=== PATIENT | male | born 1975 | race Asian ===

== ENCOUNTER → 2023-12-25 14:57 | Outpatient (REF) | payer BC, SELFPAY | LOC: RAD 14:57 | PROVIDERS: ATTENDING PHYSICIAN Physician Assistant Medical; FAMILY PHYSICIAN Internal Medicine | DX: N50.819 Testicular pain, unspecified (principal) | CPT/HCPCS: 76870; 93976 ==

== ENCOUNTER 2024-11-11 19:30 | Emergency (ER) | payer BC, SELFPAY ==
[2024-11-11 19:34] VITALS: BP 150/93
[2024-11-11 19:52] LABS: % Basophils 0.7 % (0-2); % Eosinophils 0.8 % (0-6); % Immature Granulocytes 0.3 % (0-0.5); % Lymphocytes 18.9 % (20.5-51.1); % Monocytes 6.3 % (1.7-9.3); Absolute Basophils 0.1 10^3/uL (0-0.2); Absolute Eosinophils 0.1 10^3/uL (0-0.7); Absolute Lymphocytes 1.9 10^3/uL (1.2-3.4); Absolute Monocytes 0.6 10^3/uL (0.1-0.6); Absolute Neutrophils 7.3 10^3/uL (1.4-6.5); Hematocrit 41.9 % (39.0-52.0); Hemoglobin 14.4 g/dL (13.0-18.0); Mean Corp Hgb Conc. 34.4 g/dL (33.0-37.0); Mean Corpuscular Hgb 27.9 pg (27.0-31.0); Mean Corpuscular Volume 81.2 fL (80.0-94.0); Mean Platelet Volume 10.7 fL (7.4-10.4); Nucleated Red Blood Cells % 0 % (-); Platelet Count 249 10^3/uL (130-400); Red Blood Cell Count 5.16 10^6/uL (4.70-6.10); Red Cell Dist. Width 13.2 % (11.5-14.5); White Blood Cell Count 9.9 10^3/uL (4.8-10.8)
[2024-11-11 20:10] LABS: ALT (SGPT) 22 U/L (0-50); AST (SGOT) 27 U/L (17-59); Albumin 4.4 g/dl (3.5-5.0); Alkaline Phosphatase 96 U/L (38-126); Blood Urea Nitrogen 10 mg/dl (9-20); Calcium 9.5 mg/dl (8.4-10.2); Carbon Dioxide 27 mmol/L (22-30); Chloride 105 mmol/L (98-107); Glucose 261 mg/dl (70-99); Lipase 215 U/L (23-300); Potassium 3.7 mmol/L (3.5-5.1); Sodium 140 mmol/L (135-145); Total Bilirubin 0.6 mg/dl (0.2-1.3); Total Protein 7.4 g/dl (6.3-8.2); eGFR > 60.00
[2024-11-11 20:16] LABS: Troponin I < 0.012 ng/ml
[2024-11-11 20:42] VITALS: BP 129/85
[2024-11-11 21:00] VITALS: BP 123/81
--- NOTE | 2024-11-11 21:12 | ED.GENMED ---
History of Present Illness
General
Chief Complaint: Abdominal Symptoms
Source: patient
Exam Limitations: none
Time Seen by Provider: 11/11/24 21:01
Nursing documentation reviewed up to this point in time: agreed with
History of Present Illness
History of Present Illness:
Patient to ED with complaint of belching, burning in chest. States symptoms started over the past week and occur shortly after eating. He states he feels better after belching but occassionaly continues to feel burning in his chest. Lying flat will
escalate symptoms. He denies n/v/diaphoresis. No SOB. No dizziness. States he took Omeprazole this week without improvement. Brought to ED by family for eval. He is currently symptom free.
Past History
Past History
ED Past Medical History: GERD and Hypercholesterolemia
Social History
Tobacco: Non-smoker
Alcohol: Occasional
Drug: None
Review of Systems
Review of Systems
Allergies reviewed?: Yes
All Other Systems: ROS reviewed and negative except as documented in HPI and ROS
Constitutional: Reports no symptoms
Respiratory: Reports no symptoms
Cardiac: Reports chest pain (burning in chest after eating.)
ABD/GI: Reports other (belching, burning in chest)
: Reports no symptoms
Musculoskeletal: Reports no symptoms
Skin: Reports no symptoms
Neurological: Reports no symptoms
Psychiatric: Reports no symptoms
Phy Exam
General Physical Exam
General Presentation: well appearing and no apparent distress
General age: appears stated age
General Skin: warm and dry
General Habitus: normal
Cardiovascular Exam
Cardiovascular Exam: regular rate/rhythm and no edema
Pulmonary Exam
Pulmonary Exam: lungs clear and no respiratory distress
Gastrointestinal Exam
Gastrointestinal Exam: normal bowel sounds, non tender, soft and non distended
Musculoskeletal Exam
Musculoskeletal Exam: full ROM
Skin Exam
Skin Exam: normal color, warm/dry and no rash
Psychiatric Exam
Psychiatric Exam: normal mood/affect
Course
Orders/Labs/Results
Orders:
Orders
11/11/24 19:37
ECG [Electrocardiogram (*1)] Urgent
Reason for Study: Abdominal Pain
11/11/24 19:38
EKG- Treatment ONCE
11/11/24 19:44
Complete Blood Count/With Diff Urgent
Comprehensive Metabolic Panel Urgent
Lipase Urgent
Troponin I Urgent
11/11/24 21:10
Pantoprazole [Protonix] 40 mg PO NOW STA
Abnormal Lab Results
11/11/24
19:44
MPV 10.7 H fL
(7.4-10.4)
Absolute Neuts (auto) 7.3 H 10^3/uL
(1.4-6.5)
Lymphocytes % 18.9 L %
(20.5-51.1)
Glucose 261 H mg/dl
(70-99)
11/11/24 19:44
11/11/24 19:44
Vital Signs
Initial and Last Documented VS:
Initial Vital Signs
Temp Pulse Resp BP Pulse Ox
98.3 F 132 20 150/93 99
11/11/24 19:34 11/11/24 19:34 11/11/24 19:34 11/11/24 19:34 11/11/24 19:34
Last Documented Vital Signs
Temp Pulse Resp BP Pulse Ox
98.3 F 89 16 123/81 100
11/11/24 19:34 11/11/24 21:15 11/11/24 21:15 11/11/24 21:00 11/11/24 21:00
*Critical Care Note
Total Time (30-74mins, 75-104mins- exclusive of procedures): Not Applicable
Update Note
Update Note:
Patient to ED for eval of belching, burning in chest associated wtih eating. Symptoms developed over the past week. Taking omeprazole without improvement. Labs reviewed. Troponin neg. EKG NSR. He has beensymptom free while in ED. Doubtful for
ACS. WIll place on pantoprazole BID and recommend GI follow up. He was given instructions on s/s to return to ED and he is agreeable to plan.
ED Attending Note
-
Portions of this chart may have been created with voice recognition software.� Occasional wrong word or��sound alike� substitutions may have occurred due to the inherent limitations of voice recognition software.
Discharge Plan
Departure
Patient Disposition: Home (Routine Discharge)
Date of Disposition: 11/11/24
Time of Disposition: 21:10
Patient with high blood pressure during this ER visit?: No
Condition: Good
Covid-19: Not Applicable
Discharge Problem:
Chest pain due to GERD
Instructions: Acid reflux and GERD in adults
Prescriptions:
New
pantoprazole [Protonix] 40 mg tablet,delayed release (DR/EC)
40 mg PO BID Qty: 60 0RF
Referrals:
Giles Luther MD [Active] - Call in 1-3 days for appt
Activity Restrictions/Additional Instructions:
Return to the emergency department immediately for any changes in/worsening of your symptoms.
Interventions
Interventions:
*Risk Screen - Suicide Last Done: 11/11/24 21:21
*General Assessment Last Done: 11/11/24 19:34
*Neglect/Abuse Screening Last Done: 11/11/24 21:21
*ED- Fall Risk Assessment Last Done: 11/11/24 21:21
*ED COVID-19 Vaccine History Last Done: 11/11/24 21:21
*Nursing Disposition Last Done: 11/11/24 21:22
[id number] Assessment Last Done: 11/11/24 21:20
Discharge Date and Time
Discharge Date/Time: 11/11/24 21:22
Print Language: MALIAN
[2024-11-11] MEDS: PROTONIX 40 MG PO (21:16)
== END 2024-11-11 21:22 | disposition home or self-care (01) ==
LOC: EMR 19:30
PROVIDERS: Student in an Organized Health Care Education/Training Program; EMERGENCY PHYSICIAN Emergency Medicine; FAMILY PHYSICIAN Internal Medicine
DX: R07.9 Chest pain, unspecified (principal); K21.9 Gastro-esophageal reflux disease without esophagitis; E78.00 Pure hypercholesterolemia, unspecified
CPT/HCPCS: 99284; 80053; 83690; 84484; 85025; 93005